=== PATIENT | male | born 1975 | race Caucasian/White ===

== ENCOUNTER → 2022-09-26 | Outpatient (CLI) | payer MEDICAID ==
[2022-09-26 15:38] LABS: Basophils # (A) 0.06 X 10*3/uL (0.00-0.10); Basophils % (A) 0.9 %; Eosinophils % (A) 1.4 %; HCT 48.8 % (39.6-50.0); HGB 16.6 d/dL (13.0-17.0); Lymphocytes # (A) 2.05 X 10*3/uL (0.90-5.00); Lymphocytes % (A) 29.7 %; MCH 34.2 pg (27.0-32.0); MCV 100.6 FL (80.0-97.0); Mean Platelet Volume 9.1 FL (9.5-12.2); Monocytes # (A) 0.79 X 10*3/uL (0.20-1.00); Monocytes % (A) 11.4 %; NRBC Per 100 WBC 0 X 10*3/uL (0.00-0.01); Neutrophils # (A) 3.87 X 10*3/uL (1.80-7.70); Neutrophils % (A) 56.2 %; Platelet Count 222 X 10*3/uL (140-440); RBC 4.85 X 10*6/uL (4.40-5.60); RDW 12.2 % (11.5-14.5)
[2022-09-26 15:42] LABS: Blood Urea Nitrogen 10.7 mg/dL (9.0-27.0); Calcium 9.7 mg/dL (8.7-10.3); Carbon Dioxide 24.2 mmol/L (21.6-31.8); Chloride 102 mmol/L (96-109); Glucose 94 mg/dL (70-110); Sodium 139 mmol/L (135-145)
== END | disposition home or self-care (01) ==
LOC: LABPAT 12:15
PROVIDERS: ATTEND Orthopaedic Surgery Hand Surgery
DX: Z01.812 Encounter for preprocedural laboratory examination (principal); S46.122A Laceration of muscle, fascia and tendon of long head of biceps, left arm, initial encounter; Y99.9 Unspecified external cause status
CPT/HCPCS: 36415; 80048; 85025

== ENCOUNTER → 2022-09-28 | Outpatient (CLI) | payer MEDICAID ==
--- NOTE | 2022-10-03 19:15 | MR ---
EXAMINATION TYPE: MR elbow LT wo con DATE OF EXAM: 09/28/2022 COMPARISON: Radiograph 09/26/2022 HISTORY: 46-year-old male M25.522, left elbow pain, swelling, limited movement after lifting injury. TECHNIQUE: Multiplanar, multisequence images of the left elbow were obtained without IV contrast. FINDINGS: There is rupture of the distal biceps tendon. Stump retracted by approximately 1.5 cm. The balled up stump remains below the elbow joint line. Surrounding edema and hemorrhage. The triceps insertion is intact. Physiologic joint fluid. The radiocapitellar and ulnotrochlear joints appear intact. There is heterogeneous signal in both the common extensor tendon origin and common flexor tendon orig in pronator mass. Small partial tearing at the common flexor tendon origin measuring 5 mm. Underlying UCL is intact. The LCL complex is intact. No acute or healing fracture is seen. IMPRESSION: 1. Distal biceps tendon rupture. Stump retracted by only approximately 1.5 cm. The balled up stump re nate below the elbow joint line, refer to sagittal image 24. 2. Common extensor and common flexor origin tendinosis. Small, 5 mm partial tearing common flexor ten don origin.
== END | disposition home or self-care (01) ==
LOC: RADMRIMAIN 09:26
PROVIDERS: ATTEND Orthopaedic Surgery Hand Surgery
DX: M66.822 Spontaneous rupture of other tendons, left upper arm (principal); M25.522 Pain in left elbow

== ENCOUNTER 2022-10-04 12:56 | Day surgery (SDC) | payer MEDICAID, OTHER ==
--- NOTE | 2022-10-03 09:11 | P.HPOR ---
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 He has had some intermittent numbness and tingling in the forearm and finger tips but states it is positional. He denies any prior injury to this arm in the past. He is right hand dominant. Physical Examination: LUE: AIN/PIN/Radial/Ulnar/Median motor intact. Radial/Ulnar/Median SILT. 2+/4 Radial/Ulnar pulses palpated. 5/5 APB, 5/5 FDI. Negative Finkelsteins, negative CMC grind, negative Durkan's compression. Positive hook test, Pain with supination/pronation. Elbow ROM 20-110 with pain at terminal range of motion. Imaging: X-Rays of the left elbow 3V taken in office today demonstrate no acute abnormality. MRI reviewed and interpreted by myself demonstrates a complete distal biceps tendon avulsion. Impression: 1.) Left distal biceps tendon rupture Plan: Diagnosis and treatment options were discussed with the patient. We discussed he has findings concerning for acute distal biceps tendon rupture. We discussed operative vs non operative treatment options and after discussing risks and benefits of surgical vs non operative treatment he wishes to pursue surgical treatment. Risks and benefits of surgery including bleeding, infection, damage to surrounding tissue, need for further surgery, residual numbness were discussed and the patient wished to go forward with surgery. He may stay in the sling for comfort. He is tentatively scheduled for a left distal biceps tendon repair. The patient was agreeable with this plan. -Albert Baugh DO Orthopedic Hand/Upper Extremity Surgeon Past Medical History Past Medical History: Hypertension, Osteoarthritis (OA) Additional Past Medical History / Comment(s): left arm injury at work, arthritis to hands History of Any Multi-Drug Resistant Organisms: None Reported Additional Past Surgical History / Comment(s): rt ankle surgeries x4. Past Anesthesia/Blood Transfusion Reactions: No Reported Reaction Smoking Status: Current every day smoker - Past Family History Mother Family Medical History: Cancer Father Family Medical History: Coronary Artery Disease (CAD) Medications and Allergies Home Medications Medication Instructions Recorded Confirmed Type Ascorbic Acid [Vitamin C] 1,000 mg PO DAILY 09/27/22 09/27/22 History Cholecalciferol [Vitamin D3 (125 125 mcg PO DAILY 09/27/22 09/27/22 History Mcg = 5000 Iu)] HYDROcodone/APAP 5-325MG [Thiells 1 tab PO Q4HR PRN 09/27/22 09/27/22 History 5-325] Metoprolol Succinate (ER) [Toprol 100 mg PO DAILY 09/27/22 09/27/22 History Xl] Allergies Allergy/AdvReac Type Severity Reaction Status Date / Time No Known Allergies Allergy Verified 09/27/22 11:17 Physical Examination Osteopathic Statement: *. No significant issues noted on an osteopathic structural exam other than those noted in the History and Physical/Consult.
[~2022-10-04 12:56] MED LIST: LACTATED RINGERS 1,000 ML IV SCH
[2022-10-04] MEDS ORDERED: ONDANSETRON 4 MG/2 ML VIAL ONE (13:33)
[2022-10-04] MEDS ORDERED: MIDAZOLAM 2 MG/2 ML VIAL IVP ONE (13:40)
[2022-10-04] MEDS ORDERED: fentaNYL (PF) 50 MCG/ML 2 ML AMP IVP ONE (13:42)
[2022-10-04] MEDS ORDERED: ONDANSETRON 4 MG/2 ML VIAL IVP ONE (13:46)
[2022-10-04] MEDS ORDERED: DEXAMETHASONE SOD PHOSPHATE 4 MG/ML 1 ML VIAL IVP ONE (13:46)
--- NOTE | 2022-10-04 14:10 | P.ANPRN ---
Procedure Note - Anesthesia - Nerve Block Performed Left Supraclavicular Single Time Out Performed: Yes ([id number]) Date of Procedure: 10/04/22 Procedure Start Time: 13:41 Procedure Stop Time: 13:46 Location of Patient: PreOp Indication: Acute Post-Operative Pain, Requested by Surgeon Specifically requested for management of pain by DrRox: Albert Baugh Sedation Type: Sedate with meaningful contact maintained Preparation: Sterile Prep Position: Supine Catheter: None Needle Types: Pajunk Needle Gauge: 21 Ultrasound used to visualize needle placement: Yes Ultrasound used to observe medication spread: Yes Injectate: 0.5% Ropivacaine (see comment for volume) (30cc) Blood Aspirated: No Pain Paresthesia on Injection Noted: No Resistance on Injection: Normal Image Stored and Saved: Yes Events: Uneventful and Well Tolerated
[2022-10-04] MEDS ORDERED: ROPIVACAINE 5 MG/ML 30 ML VIAL ONE (15:13)
[2022-10-04] MEDS ORDERED: PROPOFOL 10 MG/ML 20 ML VIAL IV ONE (15:13)
[2022-10-04] MEDS ORDERED: MIDAZOLAM 2 MG/2 ML VIAL ONE (15:13)
[2022-10-04] MEDS ORDERED: fentaNYL (PF) 50 MCG/ML 2 ML AMP ONE (15:13)
[2022-10-04] MEDS ORDERED: LIDOCAINE 2% INJ 20 MG/ML (2 ML VIAL) ONE (15:13)
[2022-10-04] MEDS ORDERED: ePHEDrine 50 MG/ML 1 ML VIAL ONE (15:13)
[2022-10-04] MEDS ORDERED: GLYCOPYRROLATE 0.2 MG/ML 2 ML VIAL ONE (15:13)
[2022-10-04 17:16] VITALS: TEMP 97
[2022-10-04 17:51] VITALS: RESP 16
[2022-10-04 18:20] VITALS: PULSE 72
[2022-10-04 18:23] VITALS: BP 141/88
--- NOTE | 2022-10-04 18:40 | P.OP ---
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 He presents today for left distal biceps tendon rupture repair. Risks and benefits of surgery were discussed with the patient including bleeding, damage to surrounding tissue, infection, paresthesias, need for further surgery as well as risks of anesthesia including pulmonary embolism and even and the patient wished to proceed with surgical intervention. The patients was seen in the pre-operative area by myself. Consent and H&P were completed and updated. The correct extremity was marked in the pre-operative area by myself and all other questions were answered. Patient received an upper extremity nerve block by the department of anesthesia. He then was brought to the operating room by the department of anesthesia. He was transferred to the operative table and a rolling hand table was brought to the side of the operative extremity. The patient was then drifted off to sleep by the department of anesthesia. A nonsterile tourniquet was then applied to the operative extremity and the left upper extremity was then prepped and draped in normal sterile fashion. Pre-operative time out was performed indicating the correct patient, procedure and laterality. All in the room agreed. Pre-operative antibiotics were given prior to skin incision. The operative extremity was the exsanguinated with an esmarch bandage and the tourniquet was inflated to 250mmHg. 15 blade scalpel was used to make a 4cm transverse incision 3 cm distal to the anterior elbow antecubital fossa crease. Blunt dissection was then performed in subcutaneous tissues, retractors were placed taking care to not put excessive force laterally to avoid pressure on the LABCN. Seroma was identified and the distal end of the biceps tendon was identified just proximal to the bicipital grove with adhesions formed to the surrounding maricel and vascular structures which were carefully dissected, the end of the tendon was then grasped with an Shobha clamp. Edges were trimmed of degenerative tissue to create a more profiled distal tip. A number 2 looped fiberwire was then used to sequentially grasp the tendon starting 2.5cm proximal to the distal end. The last stitch was placed in a locking fashion. Tendon sizer was then utilized the distal tendon was able to fit through a 7mm hole. Attention was then brought back to the antecubital fossa and deeper dissection was taken down to the radial tuberosity. Tendon remnants were debrided carefully with rongeur. The forearm was then maximally supinated to reveal the bicipital tuberosity on the radius in order to move the PIN nerve as far radial as possible. A 3.2mm guide pin was then inserted bicortically into the radial tuberosity aimed 30 degrees ulnarly to avoid PIN damage. Correct placement was then confirmed on flouroscopy. A 8mm drill was then used to drill the near cortex only. The wound was then copiously irrigated. The free ends of the suture where then passed through the arthrex cortical button to engage the tension slide mechanism. Cortical button was placed into the button inserted and inserted through the drill hole and deployed. Tension was then applied to snug the cortical button flush against the dorsal cortex. The free suture limbs were then tensioned to fully dock the tendon in the bone tunnel. A free needle was then used to pass one limb through the tendon and a knot was tied. Mini C arm was then used to confirm that the button had flipped and was lying flush against the cortex. The wound was then irrigated. Closure was performed with interrupted 4-0 monocryl suture followed by a running subcuticular suture. Exofin glue was then applied to the wound. 4x4s, webril and a cast padding and an brett wrap was applied. The tourniquet was let down and the hand had immediate normal perfusion. The patient was then woken and transferred to PACU in stable condition. Vimal RODRIGUEZ was present for the case and aided in assistance in hardware placement and protection of vital neurovascular structures. Albert Baugh DO Orthopedic Hand/Upper Extremity Surgeon
== END 2022-10-04 18:10 | disposition home or self-care (01) ==
LOC: OR 12:56
PROVIDERS: ATTEND Orthopaedic Surgery Hand Surgery
DX: S46.212A Strain of muscle, fascia and tendon of other parts of biceps, left arm, initial encounter (principal); G89.18 Other acute postprocedural pain; I10 Essential (primary) hypertension; F17.200 Nicotine dependence, unspecified, uncomplicated; Z82.49 Family history of ischemic heart disease and other diseases of the circulatory system; Z79.899 Other long term (current) drug therapy; X58.XXXA Exposure to other specified factors, initial encounter
CPT/HCPCS: 64415; 24342; C1713; J2250; J1100; J0690; J2405; J3010; J2795; J2704; J2001